=== PATIENT | male | born 1935 | race Caucasian/White ===

== ENCOUNTER 2017-02-13 13:56 | Emergency (ER) | payer MEDICARE, BC ==
[~2017-02-13] VITALS: Ht 182.9 cm; Wt 66.2 kg
--- NOTE | ~2017-02-13 | US85 ---
[facility] A Service of [facility] & [facility] RADIOLOGY TEXT RESULTS PATIENT: BRENNA ARNETT LOCATION: [facility] : 35 UNIT #: [id number] AGE: [address]: Quinten Barton MD SEX: M ORDER DR: [id number] [facility] [address] [place], [place] [address] [id number] MR#: [id number] Acc #: [id number] NAME: BRENNA ARNETT : 1935 SEX: M STUDY DATE/TIME: 02/13/2017 15:03 UNIT: [facility] ROOM: STUDY DESCRIPTION: LE Veins Unilat or Ltd Stdy Attending Physician: Er Doctor Generic Ordering Physician: Quinten Barton M.D. Primary Care Physician: Derik Holt M.D. MEDICAL IMAGING REPORT This report is preliminary unless electronic signature is present EXAM Right lower extremity venous ultrasound HISTORY Pain off and on for several months but worse last 3 days and unable to walk on it. FINDINGS Real-time ultrasonography of the right lower extremity venous structures performed. Suresh-scale, color Doppler, Doppler pulse-wave interrogation utilized. The right common femoral vein, profunda femoris vein, femoral vein, popliteal vein, anterior tibial, posterior tibial and peroneal veins are patent with normal compressibility and normal color Doppler interrogation demonstrating qcup-pc-qdgc flow. The great saphenous vein is patent. There is no evidence of deep or superficial venous thrombosis. In the popliteal fossa there is a fluid collection measuring 4.25 cm x 2.35 cm x 1.08 cm. Appearance and location most consistent with synovial/Najera's cyst. IMPRESSION 1. No evidence of right lower extremity deep or superficial venous thrombosis at time of this examination. 2. 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 Clinical followup recommended. Dictated by... Cristi Coughlin M.D. THIS IS AN ELECTRONICALLY VERIFIED REPORT Cristi Coughlin M.D. at 02/14/2017 6:17 PM GAB/katelyn [facility] A Service of [facility] & [facility] RADIOLOGY TEXT RESULTS PATIENT: BRENNA ARNETT LOCATION: [facility] : 35 UNIT #: [id number] AGE: [address]: Quinten Barton MD SEX: M ORDER DR: TD: 02/14/2017 00:11 JOB #: [id number] MEDICAL IMAGING REPORT Page 1 of 1 COPY
--- NOTE | ~2017-02-13 | CR127 ---
[facility] A Service of [facility] RADIOLOGY TEXT RESULTS PATIENT: BRENNA ARNETT LOCATION: [facility] : 35 UNIT #: [id number] AGE: [address]: Quinten Barton MD SEX: M ORDER DR: [id number] [facility] [address] [place], [place] [address] [id number] E MR#: [id number] Acc #: [id number] NAME: BRENNA ARNETT : 1935 SEX: M STUDY DATE/TIME: 02/13/2017 20:10 UNIT: [facility] ROOM: STUDY DESCRIPTION: CR Foot Complete Min 3 View Rt Attending Physician: Quinten Barton M.D. Ordering Physician: Quinten Barton M.D. Primary Care Physician: Derik Holt M.D. MEDICAL IMAGING REPORT This report is preliminary unless electronic signature is present EXAM Right foot 02/13/2017 HISTORY 81-year-old male with right foot pain for 4 days. No specific injury. COMPARISON None. FINDINGS 4 views of the right foot demonstrate diffuse bony demineralization. No evidence of a displaced fracture or dislocation. Soft tissues are unremarkable. No joint effusion. IMPRESSION Severe osteopenia. No evidence of a displaced fracture or dislocation. Dictated by... Diaz Allen M.D. THIS IS AN ELECTRONICALLY VERIFIED REPORT Diaz Allen M.D. at 02/14/2017 3:17 PM SIMONE/thu TD: 02/14/2017 09:32 JOB #: [id number] MEDICAL IMAGING REPORT Page 1 of 1 COPY
[~2017-02-13 13:56] MED LIST: ACETAMINOPHEN PO; ALEVE220 M1; ARICEPT PO; ASPIRIN PO; ATENOLOL PO; BISACODYL10 MG/SUPP PR; CORRECTOL5 MG PO; COUMADIN PO; COUMADIN3 MG PO; CRESTOR PO; EUCERIN CREME60 GM TOP; HYDROCODON-ACE1 EAC7 PO; LANOXIN PO; LASIX PO; MILK OF MAGNESIA PO; NORCO 5/325 TAB1 TAB PO; NORVASC PO; NORVASC10 MG PO; PATIENT'S PHARMACY; TENORMIN25 MG PO; VICODIN 5/500 T1 TAB PO; ZOCOR PO; ZOCOR20 MG PO
== END 2017-02-13 20:55 | disposition home or self-care (01) ==
LOC: CED 13:56
DX: M71.21 Synovial cyst of popliteal space [Baker], right knee (principal); I10 Essential (primary) hypertension; Z79.899 Other long term (current) drug therapy
CPT/HCPCS: 73630; 93971; 99284

== ENCOUNTER 2017-02-18 10:12 | Emergency (ER) | payer MEDICARE, BC ==
[~2017-02-18] VITALS: Ht 172.7 cm; Wt 63.5 kg
--- NOTE | ~2017-02-18 | CR71 ---
[facility] A Service of [facility] & [facility] RADIOLOGY TEXT RESULTS PATIENT: BRENNA ARNETT LOCATION: [facility] : 35 UNIT #: [id number] AGE: [address]: Jason Pete MD SEX: M ORDER DR: [id number] [facility] [address] [place] [address] [place], [place] [address] [id number] E MR#: [id number] Acc #: [id number] NAME: BRENNA ARNETT : 1935 SEX: M STUDY DATE/TIME: 02/18/2017 10:52 UNIT: [facility] ROOM: STUDY DESCRIPTION: CR Chest Single View Attending Physician: Jason Pete M.D. Ordering Physician: Jason Pete M.D. Primary Care Physician: Candice Daniels A.P.R.N. MEDICAL IMAGING REPORT This report is preliminary unless electronic signature is present EXAM Portable chest. INDICATION Shortness of breath after a fall today. FINDINGS Heart size is within normal limits. Patient does have background emphysematous changes. No definite acute infiltrates were seen. No displaced rib fractures are identified. There is no pneumothorax or pleural effusion. Dictated by... Lucina Romero M.D. THIS IS AN ELECTRONICALLY VERIFIED REPORT Lucina Romero M.D. at 02/19/2017 5:04 PM AFF/df TD: 02/19/2017 09:49 JOB #: [id number] MEDICAL IMAGING REPORT Page 1 of 1 COPY
--- NOTE | ~2017-02-18 | EKG ---
PATIENT: BRENNA ARNETT UNIT #: [id number] Ventricular Rate: 56 BPM Atrial Rate: 56 BPM P-R Interval: 150 ms QRS Duration: 84 ms Q-T Interval: 450 ms QTC Calculation(Bezet): 434 ms P [place]: 75 degrees Calculated R [place]: 79 degrees Calculated T [place]: 57 degrees Diagnosis Line: Sinus bradycardia Diagnosis Line: Junctional ST depression, probably normal Diagnosis Line: Otherwise normal ECG Baseline wander Diagnosis Line: When compared with ECG of 16-DEC-2014 16:30, Diagnosis Line: Sinus rhythm has replaced Atrial fibrillation Diagnosis Line: Vent. rate has decreased BY 47 BPM Diagnosis Line: Nonspecific T wave abnormality no longer evident Diagnosis Line: in Inferior leads Diagnosis Line: Confirmed by MAGALIE SLATER MD ([id number]) on 02/18/2017 Diagnosis Line: 11:08:30 PM INTERPRETING MD: BRYON ARAGON
[2017-02-18 12:07] LABS: BASOPHIL% 0.4 % (0-2.5); EOSINOPHIL% 0.2 % (0.0-7.0); HEMATOCRIT 36.3 % (38.0-50.0); HEMOGLOBIN 12.2 gm/dL (13.0-16.0); LYMPHOCYTE# 1.2 X10e3 (1.0-3.5); LYMPHOCYTE% 13.3 % (17.0-45.0); MEAN CELL VOLUME 93.6 FL (83-96); MEAN CORPUSCULAR HEMOGLOBIN 31.3 PG (28-34); MEAN CORPUSCULAR HGB CONC 33.5 g/dL (30-36); MEAN PLATELET VOLUME 9.3 FL (6.5-11.5); MONOCYTE# 1.2 X10e3 (0-1.0); MONOCYTE% 13.2 % (3.0-12.0); NEUTROPHIL# 6.6 X10e3 (1.5-7.1); NEUTROPHIL% 72.9 % (40-75); PLATELET COUNT 210 X10e3 (140-420); RED BLOOD COUNT 3.88 X10e (3.90-5.60); RED CELL DISTRIBUTION WIDTH 13.1 % (11.0-15.5)
[2017-02-18 12:11] LABS: DIFF IND NO
[2017-02-18 12:39] LABS: POC - CKMB 1.2 ng/mL (0.0-7.9); POC - TROPONIN <0.05 ng/mL (<=0.05)
[2017-02-18 12:40] LABS: ALBUMIN SERUM 4.7 g/dL (3.5-5.0); BILIRUBIN, DIRECT 0.2 mg/dL (0.0-0.2); BILIRUBIN,INDIRECT 0.7 mg/dL (0.0-0.9); BILIRUBIN,TOTAL 0.9 mg/dL (0.2-2.0); BUN/CREATININE RATIO 16.15; CALCIUM SERUM 9.1 mg/dL (8.4-10.2); CREATININE SERUM 1.3 mg/dL (0.6-1.4); GLOM FILT RATE Estimated 51.2 mL/min (>60); POTASSIUM 3.6 mmol/L (3.5-5.1); PROTEIN TOTAL SERUM 7.7 g/dL (6.0-8.3)
[2017-02-18 13:53] LABS: INR 1.8; PROTHROMBIN TIME (PATIENT) 20.1 SECONDS (10.0-11.7)
[2017-02-18 14:15] LABS: URINE SOURCE CLEAN CATCH
[2017-02-18 14:23] LABS: URINE APPEARANCE CLEAR; URINE BILIRUBIN NEG (NEG); URINE BLOOD NEG (NEG); URINE COLOR YELLOW; URINE GLUCOSE NEG (NEG); URINE KETONE NEG (NEG); URINE LEUKOCYTE ESTERASE NEG (NEG); URINE NITRATE NEG (NEG); URINE PROTEIN NEG (NEG)
[2017-02-18 14:27] LABS: CULTURE INDICATED? NO
== END 2017-02-18 14:50 | disposition home or self-care (01) ==
LOC: CED 10:12
PROVIDERS: Emergency Medicine
DX: S86.919A Strain of unspecified muscle(s) and tendon(s) at lower leg level, unspecified leg, initial encounter (principal); R53.1 Weakness; I48.91 Unspecified atrial fibrillation; T40.2X5A Adverse effect of other opioids, initial encounter; Z79.899 Other long term (current) drug therapy; X58.XXXA Exposure to other specified factors, initial encounter
CPT/HCPCS: 36415; 71010; 80048; 80076; 81003; 82553; 84484; 85025; 85610; 93005; 99285